=== PATIENT | female | born 2000 | race Caucasian/White ===

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

== ENCOUNTER 2021-01-11 06:54 | Day surgery (SDC) | payer BC ==
[2021-01-09 16:18] VITALS: BMI 16.0
[~2021-01-11 06:54] MED LIST: LACTATED RINGERS 1,000 ML IV SCH
[2021-01-11 07:25] VITALS: TEMP 97
[2021-01-11] MEDS ORDERED: PROPOFOL 10 MG/ML 20 ML VIAL IV ONE (07:45)
[2021-01-11] MEDS ORDERED: LIDOCAINE 1% INJ 10MG/ML (20 ML MDV) ONE (07:45)
--- NOTE | 2021-01-11 08:23 | P.PCN ---
Date of Procedure: 01/11/21 Description of Procedure: Brief history: Patient is a pleasant 20-year-old presents for esophagogastroduodenoscopy and colonoscopy for symptoms of melena, nausea, abdominal pain. Patient has been started on Prilosec daily. Intermittent dark black stools. Frequent episodes of nausea. Procedure performed: Esophagogastroduodenoscopy with biopsy Colonoscopy with biopsy Estimated blood loss: Minimal. Preoperative diagnosis: Melena, nausea, abdominal pain Anest[place]: [facility] [place] Procedure: After informed consent was obtained from the patient was brought into the endoscopy unit and IV sedation was administered by anesthesia under continuous monitoring. Initially upper endoscopy was done. The Olympus GF 190 video endoscope was inserted into the mouth and esophagus intubated without any difficulty and was gradually advanced into the stomach and duodenum and carefully examined. The bulb and second part of the duodenum appeared normal, with biopsies taken to rule out celiac sprue. The scope was then withdrawn into the stomach adequately insufflated with air and upon careful examination the antrum and body, cardia and fundus appeared normal, except for some mild punctate erythema in the antrum and body suggestive of mild gastritis with biopsies taken. The scope was then withdrawn into the esophagus. The GE junction was located at 40 cm to the incisors. It appeared regular with no erythema erosions or ulcerations. Rest of the esophagus appeared normal, with lower esophageal biopsies taken. Patient tolerated the procedure well. At this time the patient continued to remain sedation. Initial digital rectal examination was normal. Olympus CF 190 video colonoscope was then inserted into the rectum and gradually advanced to the cecum without any difficulty. Careful examination was performed as the scope was gradually being withdrawn. The prep was excellent. The cecum, ascending colon, transverse colon, descending colon, sigmoid colon and rectum appeared normal, and normal-appearing terminal ileum with random biopsies taken of the right colon, left colon and terminal ileum. Retroflexion was performed in the rectum and no lesions were noted, low-grade internal hemorrhoids seen. Patient tolerated the procedure well. Impression: 1. Mild gastritis. Biopsies of the duodenum, antrum and body and lower esophagus taken. 2. Normal-appearing colon from rectum to cecum normal-appearing terminal ileum with random biopsies taken of the terminal ileum, right and left colon. Recommendations: Findings of this examination were discussed with the patient as well as the patient's mother. Okay to resume diet. Okay to resume medications. Continue trial of Prilosec. Follow-up in the GI clinic in 1 week for further recommendations and results of biopsies.
[2021-01-11 08:25] VITALS: RESP 16
[2021-01-11 09:02] VITALS: BP 98/62; PULSE 50
== END 2021-01-11 09:13 | disposition home or self-care (01) ==
LOC: ORWHC2ENDO 06:54
PROVIDERS: ATTEND Internal Medicine
DX: K92.1 Melena (principal); K29.50 Unspecified chronic gastritis without bleeding; K21.00 Gastro-esophageal reflux disease with esophagitis, without bleeding; F41.9 Anxiety disorder, unspecified; F31.9 Bipolar disorder, unspecified
CPT/HCPCS: 81025; 88305; 45380; 43239; J2001; J2704

== ENCOUNTER → 2021-05-28 | Outpatient (CLI) | payer BC ==
[2021-05-28 14:24] LABS: Basophils # (A) 0.02 X 10*3/uL (0.00-0.10); Basophils % (A) 0.4 %; Eosinophils % (A) 1.9 %; HCT 42.4 % (37.2-46.3); HGB 13.9 g/dL (12.0-15.0); Lymphocytes # (A) 2.13 X 10*3/uL (0.90-5.00); MCH 30.9 pg (27.0-32.0); MCHC 32.8 g/dL (32.0-37.0); MCV 94.2 fL (80.0-97.0); Mean Platelet Volume 9.5 fL (9.5-12.2); Monocytes % (A) 9.6 %; Neutrophils # (A) 2.45 X 10*3/uL (1.80-7.70); Neutrophils % (A) 47.1 %; Platelet Count 228 X 10*3/uL (140-440); RDW 12.1 % (11.5-14.5)
[2021-05-28 15:14] LABS: ALT 8 U/L (8-44); AST 14 U/L (13-35); Albumin 4.5 g/dL (3.8-4.9); Albumin/Globulin Ratio 2.35 (1.60-3.17); Alkaline Phosphatase 59 U/L (41-126); Bilirubin, Conjugated <0.20 mg/dL (0.20-0.40); Globulin 1.9 g/dL (1.6-3.3); Total Protein 6.4 g/dL (6.2-8.2)
[2021-05-28 23:00] LABS: Carbamazepine (Tegretol) 6.7 ug/mL (4.0-12.0)
== END | disposition home or self-care (01) ==
LOC: LABWHC1 09:41
DX: Z79.899 Other long term (current) drug therapy (principal)
CPT/HCPCS: 36415; 80076; 80156; 84443; 85025

== ENCOUNTER → 2021-07-16 | Outpatient (CLI) | payer BC ==
[2021-07-16 19:36] LABS: Estradiol 57.1 pg/mL
[2021-07-16 19:43] LABS: ALT 6 U/L (8-44); AST 15 U/L (13-35); African American GFR (CKD) 146.1 (60.0-200.0); Albumin 4.8 g/dL (3.8-4.9); Albumin/Globulin Ratio 2.24 (1.60-3.17); Alkaline Phosphatase 66 U/L (41-126); BUN/Creat Ratio 20.35 Ratio (12.00-20.00); Blood Urea Nitrogen 14.1 mg/dL (9.0-27.0); Calcium 9.4 mg/dL (8.7-10.3); Carbon Dioxide 23.3 mmol/L (20.0-27.5); Chloride 106 mmol/L (96-109); Chol/HDL Ratio 2.81 Ratio; Globulin 2.2 g/dL (1.6-3.3); Glucose 83 mg/dL (70-110); LDL Cholesterol,Calculated 84.6 mg/dL (0.0-131.0); Potassium 4.2 mmol/L (3.5-5.5); Sodium 141 mmol/L (135-145); VLDL Calculation 12.58 mg/dL (5.00-40.00)
[2021-07-16 20:06] LABS: Basophils # (A) 0.02 X 10*3/uL (0.00-0.10); Basophils % (A) 0.5 %; Eosinophils # (A) 0.06 X 10*3/uL (0.04-0.35); Eosinophils % (A) 1.5 %; HCT 39.6 % (37.2-46.3); HGB 13.5 g/dL (12.0-15.0); Lymphocytes % (A) 35.2 %; MCH 31.7 pg (27.0-32.0); MCHC 34.1 g/dL (32.0-37.0); Mean Platelet Volume 9.5 fL (9.5-12.2); Monocytes # (A) 0.28 X 10*3/uL (0.20-1.00); Neutrophils # (A) 2.22 X 10*3/uL (1.80-7.70); Neutrophils % (A) 55.8 %; Platelet Count 184 X 10*3/uL (140-440); RBC 4.26 X 10*6/uL (4.10-5.20); WBC 3.98 X 10*3/uL (4.50-10.00)
[2021-07-16 20:10] LABS: C Reactive Protein <0.30 mg/dL (0.00-0.80); Carbamazepine (Tegretol) <2.0 ug/mL (4.0-12.0); Thyroid Peroxidase Antibodies <9.0 U/mL (0.0-33.0)
== END | disposition home or self-care (01) ==
LOC: LABWHC1 13:23
PROVIDERS: ATTEND Obstetrics & Gynecology
DX: I73.00 Raynaud's syndrome without gangrene (principal); E34.50 Androgen insensitivity syndrome, unspecified; R53.83 Other fatigue; R41.3 Other amnesia; Z51.81 Encounter for therapeutic drug level monitoring
CPT/HCPCS: 36415; 80053; 80061; 80156; 82306; 82525; 82607; 82670; 82746; 83036; 83735; 84402; 84403; 84439; 84443; 84481; 84482; 84630; 85025; 86038; 86140; 86376; 86800

== ENCOUNTER 2022-01-02 16:32 | Emergency (ER) | payer BC ==
[2022-01-02 16:52] VITALS: BP 113/72; PULSE 76; RESP 16; TEMP 98.1
--- NOTE | 2022-01-02 17:20 | ED ---
General Adult HPI - General Chief complaint: Psychiatric Symptoms Stated complaint: Mental Health Time Seen by Provider: 01/02/22 16:53 Source: patient Mode of arrival: ambulatory Limitations: no limitations - History of Present Illness Initial comments: Dictation was produced using [employer] dictation software. please excuse any grammatical, word or spelling errors. Chief Complaint: 21-year-old transgender female presents to the emergency department suicidal ideation. History of Present Illness: Patient 21-year-old transgender female presents to the emergency Department for suicidal ideation suicidal behavior. Patient has strong psychiatric history has been admitted to inpatient psychiatry on normal occasions in the past. Over the last several days she has been feeling more suicidal. She has made when she superficial lacerations and abrasions to her extremities. Patient is here accompanied by mother who is one of our PROJECT ADMINISTRATOR's. Patient has no medical complaints today. The ROS documented in this emergency department record has been reviewed and confirmed by me. Those systems with pertinent positive or negative responses have been documented in the HPI. All other systems are other negative and/or noncontributory. PHYSICAL EXAM: General Impression: Alert and oriented x3, not in acute distress HEENT: Normocephalic atraumatic, extra-ocular movements intact, pupils equal and reactive to light bilaterally, mucous membranes moist. Cardiovascular: Heart regular rate and rhythm Chest: Able to complete full sentences, no retractions, no tachypnea Abdomen: abdomen soft, non-tender, non-distended, no organomegaly Musculoskeletal: Pulses present and equal in all extremities, no peripheral edema Motor: no focal deficits noted Neurological: CN II-XII grossly intact, no focal motor or sensory deficits noted Skin: Multiple superficial abrasions to the anterior thighs bilaterally and anterior abdomen Psych: Normal affect and mood ED course: 21 yo old female presents emergency department for suicidal ideation and suicidal behavior. Her plan is to overdose on medications. Patient is a transgender female. Vital Signs upon arrival are within acceptable limits. Patient is well-appearing at bedside. She denies any medical complaints. Physical examination is benign. Patient medically cleared for EPS evaluation. Patient evaluated by EPS recommended discharge. Patient does have good outpatient follow-up. Patient has good social situation and will make his appointments. Patient and mother are happy with plan. - Related Data Home Medications Medication Instructions Recorded Confirmed Benztropine Mesylate [Cogentin] 0.5 mg PO BID 01/02/22 01/02/22 Cariprazine HCl [Vraylar] 3 mg PO DAILY 01/02/22 01/02/22 Deplin 15mg Caps 15 mg PO DAILY 01/02/22 01/02/22 Desvenlafaxine Succinate [Pristiq 50 mg PO DAILY 01/02/22 01/02/22 ER] Norethindrone Acetate 2.5 mg PO DAILY 01/02/22 01/02/22 [Norethindrone AC (Lupaneta)] Testosterone [Testosterone 1.62% 1 packet TRANSDERM DAILY 01/02/22 01/02/22 (1250 mg)] busPIRone HCl [Buspar] 5 mg PO TID PRN 01/02/22 01/02/22 traZODone HCL [Desyrel] 150 mg PO HS 01/02/22 01/02/22 Allergies Allergy/AdvReac Type Severity Reaction Status Date / Time No Known Allergies Allergy Verified 01/02/22 19:14 Review of Systems ROS Statement: Those systems with pertinent positive or pertinent negative responses have been documented in the HPI. ROS Other: All systems not noted in ROS Statement are negative. Past Medical History Past Medical History: No Reported History Additional Past Medical History / Comment(s): ABD. PAIN, N/V/D. TRANSGENDER- CURRENTLY ON HRT History of Any Multi-Drug Resistant Organisms: None Reported Past Surgical History: No Surgical Hx Reported Past Anesthesia/Blood Transfusion Reactions: No Reported Reaction Past Psychological History: Depression Smoking Status: Current every day smoker, Vaper Past Alcohol Use History: None Reported Past Drug Use History: Marijuana - Past Family History Father Family Medical History: Hyperlipidemia Mother Family Medical History: No Reported History General Exam Limitations: no limitations Course Vital Signs 01/02/22 16:49 Temperature 98.1 F Pulse Rate 76 Respiratory 16 Rate Blood Pressure 113/72 O2 Sat by Pulse 100 Oximetry Medical Decision Making - Lab Data Lab Results 01/02/22 Range/Units 18:06 Urine Opiates Screen Not Detected (NotDetected) Ur Oxycodone Screen Not Detected (NotDetected) Urine Methadone Screen Not Detected (NotDetected) Ur Propoxyphene Screen Not Detected (NotDetected) Ur Barbiturates Screen Not Detected (NotDetected) U Tricyclic Antidepress Not Detected (NotDetected) Ur Phencyclidine Scrn Not Detected (NotDetected) Ur Amphetamines Screen Not Detected (NotDetected) U Methamphetamines Scrn Not Detected (NotDetected) U Benzodiazepines Scrn Not Detected (NotDetected) Urine Cocaine Screen Not Detected (NotDetected) U Marijuana (THC) Screen Detected H (NotDetected) Disposition Clinical Impression: Suicidal ideation Disposition: HOME SELF-CARE Condition: Fair Instructions (If sedation given, give patient instructions): Help Prevent Suicide (ED) Is patient prescribed a controlled substance at d/c from ED?: No Referrals: Fortunato Vogt MD [Primary Care Provider] - 1-2 days Time of Disposition: 22:31
[2022-01-02 18:35] LABS: Amphetamine Screen,Urine Not Detected (NotDetected); Barbiturate Screen,Urine Not Detected (NotDetected); Benzodiazepines Screen,Urine Not Detected (NotDetected); Cocaine Screen,Urine Not Detected (NotDetected); Methadone Screen, Urine Not Detected (NotDetected); Opiate Screen,Urine Not Detected (NotDetected); Oxycodone Screen, Urine Not Detected (NotDetected); Phencyclidine Screen,Urine Not Detected (NotDetected); Tricyclic Antidepressant,Urine Not Detected (NotDetected); Urn Cannabinoid Scrn Detected (NotDetected)
== END 2022-01-02 22:41 | disposition home or self-care (01) ==
LOC: EC 16:32
DX: R45.851 Suicidal ideations (principal); F32.A Depression, unspecified; F17.290 Nicotine dependence, other tobacco product, uncomplicated; F12.90 Cannabis use, unspecified, uncomplicated
CPT/HCPCS: 80306; 82075; 99284

== ENCOUNTER 2022-05-09 15:12 | Emergency (ER) | payer BC ==
[2022-05-09 15:29] VITALS: TEMP 98.6
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
[2022-05-09 16:22] LABS: Basophils % (A) 1 %; Eosinophils % (A) 1 %; HCT 41.7 % (39.0-53.0); HGB 15.6 gm/dL (13.0-17.5); Lymphocytes # (A) 2.6 k/uL (1.0-4.8); Lymphocytes % (A) 46 %; MCH 33.3 pg (25.0-35.0); MCHC 37.4 g/dL (31.0-37.0); MCV 89.2 fL (80.0-100.0); Monocytes # (A) 0.4 k/uL (0-1.0); Monocytes % (A) 7 %; Neutrophils # (A) 2.5 k/uL (1.3-7.7); Neutrophils % (A) 44 %; Platelet Count 242 k/uL (150-450); RBC 4.68 m/uL (4.30-5.90); RDW 12.9 % (11.5-15.5); WBC 5.7 k/uL (4.0-11.0)
[2022-05-09 16:33] LABS: ALT 12 U/L (4-49); AST 21 U/L (17-59); Acetaminophen <10.0 ug/mL; African American GFR (CKD) >90 (>60 ml/min/1.73 sqM); Albumin 5.1 g/dL (3.5-5.0); Alkaline Phosphatase 65 U/L (38-126); Anion Gap 12 mmol/L; Blood Urea Nitrogen 12 mg/dL (9-20); Calcium 9.7 mg/dL (8.4-10.2); Carbon Dioxide 18 mmol/L (22-30); Chloride 109 mmol/L (98-107); Glucose 130 mg/dL (74-99); Non-African American GFR(CKD) >90 (>60 ml/min/1.73 sqM); Potassium 3.8 mmol/L (3.5-5.1); Sodium 139 mmol/L (137-145); Total Protein 7.5 g/dL (6.3-8.2)
[2022-05-09 17:35] LABS: Appearance,Urine Cloudy (Clear); Bacteria,Urine Rare /hpf; Bilirubin,Urine 1+ (Negative); Blood,Urine Negative (Negative); Color,Urine Yellow; Glucose,Urine (UA) Negative (Negative); Ketones,Urine 2+ (Negative); Leukocyte Esterase,Urine Negative (Negative); Mucus,Urine Many /hpf; Nitrite,Urine Negative (Negative); Protein,Urine 1+ (Negative); RBC,Urine 2 /hpf (0-5); Specific Gravity,Urine 1.031 (1.001-1.035); Squamous Epithelial Cell,Urine 6 /hpf (0-4); WBC,Urine 6 /hpf (0-5)
[2022-05-09 17:43] LABS: Amphetamine Screen,Urine Not Detected (NotDetected); Barbiturate Screen,Urine Not Detected (NotDetected); Benzodiazepines Screen,Urine Not Detected (NotDetected); Cocaine Screen,Urine Not Detected (NotDetected); Methadone Screen, Urine Not Detected (NotDetected); Opiate Screen,Urine Not Detected (NotDetected); Oxycodone Screen, Urine Not Detected (NotDetected); Phencyclidine Screen,Urine Not Detected (NotDetected); Tricyclic Antidepressant,Urine Not Detected (NotDetected); Urn Cannabinoid Scrn Detected (NotDetected)
[2022-05-09 21:04] VITALS: RESP 16
[2022-05-10 00:12] VITALS: BP 92/54; PULSE 71
[2022-05-13 14:19] LABS: C. trachomatis,PCR Negative (Neg,Equiv); Chlamydia trachomatis Source Urine; N. gonorrhoeae,PCR Negative (Neg,Equiv); Neisseria Source Urine
[2022-05-13 23:04] LABS: C. pnuemoniae IgM <1:10 titer (<1:10)
== END 2022-05-10 02:06 | disposition home or self-care (01) ==
LOC: EDSEX → EC 15:12
DX: T43.222A Poisoning by selective serotonin reuptake inhibitors, intentional self-harm, initial encounter (principal); R45.851 Suicidal ideations; F43.23 Adjustment disorder with mixed anxiety and depressed mood; F32.A Depression, unspecified; F17.290 Nicotine dependence, other tobacco product, uncomplicated; F12.90 Cannabis use, unspecified, uncomplicated
CPT/HCPCS: 36415; 80053; 80143; 80179; 80306; 81001; 82075; 83735; 85025; 86631; 86632; 87390; 87491; 87591; 93005; 99285

== ENCOUNTER → 2022-06-21 | Outpatient (CLI) | payer BC ==
[2022-06-21 19:15] LABS: HCT 40.8 % (39.6-50.0); HGB 14.1 g/dL (13.0-17.0); MCHC 34.6 g/dL (32.0-37.0); MCV 92.5 fL (80.0-97.0); Mean Platelet Volume 8.8 fL (9.5-12.2); NRBC Per 100 WBC 0 /100 WBCS (0.0-0.0); Platelet Count 178 X 10*3/uL (140-440); RBC 4.41 X 10*6/uL (4.40-5.60); RDW 12.4 % (11.5-14.5); WBC 3.38 X 10*3/uL (4.50-10.00)
[2022-06-21 20:06] LABS: ALT 11 U/L (10-49); AST 17 U/L (14-35); African American GFR (CKD) 156.9 (60.0-200.0); Albumin 4.4 g/dL (3.8-4.9); Albumin/Globulin Ratio 2.13 (1.60-3.17); Alkaline Phosphatase 69 U/L (41-126); BUN/Creat Ratio 13.56 Ratio (12.00-20.00); Blood Urea Nitrogen 9.6 mg/dL (9.0-27.0); Calcium 8.7 mg/dL (8.7-10.3); Carbon Dioxide 23.2 mmol/L (20.0-27.5); Chloride 109 mmol/L (96-109); Estradiol 48.6 pg/mL; Follicle Stimulating Hormone 6.7 mIU/mL; Globulin 2.1 g/dL (1.6-3.3); Glucose 85 mg/dL (70-110); LDL Cholesterol,Calculated 64.1 mg/dL (0.0-131.0); Magnesium 2.1 mg/dL (1.5-2.4); Non-African American GFR(CKD) 135.4 (60.0-200.0); Sodium 142 mmol/L (135-145); Total Protein 6.5 g/dL (6.2-8.2); VLDL Calculation 4.42 mg/dL (5.00-40.00)
[2022-06-25 10:52] LABS: HIV-1 RNA Not detected (Not detected)
[2022-06-29 19:29] LABS: Albumin, LC/MS/MS 4.3 g/dL (3.6-5.1); Testosterone, Free, LC/MS/MS 220.8 pg/mL (46.0-224.0); Testosterone, Total, LC/MS/MS 1060 ng/dL (250-1100); Zinc, RBC 12.34 mg/L (9.0-14.7)
== END | disposition home or self-care (01) ==
LOC: LABWHC1 11:44
PROVIDERS: ATTEND Obstetrics & Gynecology
DX: Z11.3 Encounter for screening for infections with a predominantly sexual mode of transmission (principal); E55.9 Vitamin D deficiency, unspecified; F41.8 Other specified anxiety disorders; E34.50 Androgen insensitivity syndrome, unspecified; D51.9 Vitamin B12 deficiency anemia, unspecified
CPT/HCPCS: 36415; 80053; 80061; 82040; 82306; 82607; 82670; 82746; 83001; 83036; 83735; 84270; 84403; 84439; 84443; 84481; 84630; 85027; 86780; 87340; 87535

== ENCOUNTER → 2024-03-02 | Outpatient (CLI) | payer BC ==
[2024-03-02 15:10] LABS: Basophils # (A) 0.02 X 10*3/uL (0.00-0.10); Basophils % (A) 0.5 %; Eosinophils # (A) 0.06 X 10*3/uL (0.04-0.35); Eosinophils % (A) 1.5 %; HCT 44.4 % (37.2-46.3); HGB 15.2 g/dL (12.0-15.0); Immature Grans, Automated 0 %; Lymphocytes # (A) 2.04 X 10*3/uL (0.90-5.00); Lymphocytes % (A) 49.5 %; MCHC 34.2 g/dL (32.0-37.0); MCV 90.4 FL (80.0-97.0); Mean Platelet Volume 9.4 FL (9.5-12.2); Monocytes # (A) 0.35 X 10*3/uL (0.20-1.00); Monocytes % (A) 8.5 %; NRBC Per 100 WBC 0 X 10*3/uL (0.00-0.01); Neutrophils # (A) 1.65 X 10*3/uL (1.80-7.70); Platelet Count 203 X 10*3/uL (140-440); RBC 4.91 X 10*6/uL (4.10-5.20); WBC 4.12 X 10*3/uL (4.50-10.00)
[2024-03-02 15:58] LABS: ALT 8 U/L (8-44); AST 14 U/L (13-35); Albumin 4.6 g/dL (3.8-4.9); Albumin/Globulin Ratio 2.19 Ratio (1.60-3.17); Alkaline Phosphatase 64 U/L (41-126); BUN/Creat Ratio 13.25 Ratio (12.00-20.00); Blood Urea Nitrogen 10.6 mg/dL (9.0-27.0); Calcium 9.5 mg/dL (8.7-10.3); Carbon Dioxide 23.8 mmol/L (21.6-31.8); Chloride 109 mmol/L (96-109); Globulin 2.1 g/dL (1.6-3.3); Glucose 88 mg/dL (70-110); Potassium 4.7 mmol/L (3.5-5.5); Sodium 142 mmol/L (135-145); T4, Free (Free Thyroxine) 1.33 ng/dL (0.80-1.80); Total Bilirubin 0.3 mg/dL (0.3-1.2); Total Protein 6.7 g/dL (6.2-8.2)
== END | disposition home or self-care (01) ==
LOC: LABWHC1 08:38
PROVIDERS: ATTEND Psychiatry & Neurology Psychiatry
DX: Z00.00 Encounter for general adult medical examination without abnormal findings
CPT/HCPCS: 36415; 80053; 82306; 82607; 82746; 83090; 84439; 84443; 84481; 85025

== ENCOUNTER → 2024-09-27 | Outpatient (CLI) | payer BC ==
[2024-09-27 15:08] LABS: Basophils # (A) 0.02 X 10*3/uL (0.00-0.10); Basophils % (A) 0.5 %; Eosinophils # (A) 0.08 X 10*3/uL (0.04-0.35); HCT 43.5 % (37.2-46.3); HGB 14.9 g/dL (12.0-15.0); Lymphocytes # (A) 1.73 X 10*3/uL (0.90-5.00); Lymphocytes % (A) 42.8 %; MCH 31.2 pg (27.0-32.0); MCHC 34.3 g/dL (32.0-37.0); MCV 91.2 FL (80.0-97.0); Mean Platelet Volume 9.1 FL (9.5-12.2); Monocytes # (A) 0.29 X 10*3/uL (0.20-1.00); Monocytes % (A) 7.2 %; NRBC Per 100 WBC 0 X 10*3/uL (0.00-0.01); Neutrophils # (A) 1.91 X 10*3/uL (1.80-7.70); Neutrophils % (A) 47.3 %; Platelet Count 210 X 10*3/uL (140-440); RBC 4.77 X 10*6/uL (4.10-5.20); RDW 12.2 % (11.5-14.5); WBC 4.04 X 10*3/uL (4.50-10.00)
[2024-09-27 15:29] LABS: Homocysteine <5.00 UMOL/L (4.00-14.00)
[2024-09-27 15:35] LABS: ALT 11 U/L (8-44); AST 17 U/L (13-35); Albumin 4.3 g/dL (3.8-4.9); Albumin/Globulin Ratio 1.87 Ratio (1.60-3.17); Alkaline Phosphatase 55 U/L (41-126); BUN/Creat Ratio 14.71 Ratio (12.00-20.00); Blood Urea Nitrogen 10.3 mg/dL (9.0-27.0); Carbon Dioxide 23.6 mmol/L (21.6-31.8); Chloride 109 mmol/L (96-109); Chol/HDL Ratio 3.63 Ratio; Globulin 2.3 g/dL (1.6-3.3); Glucose 96 mg/dL (70-110); LDL Cholesterol,Calculated 97.5 mg/dL (0.0-131.0); Potassium 4.3 mmol/L (3.5-5.5); Sodium 143 mmol/L (135-145); T4, Free (Free Thyroxine) 1.26 ng/dL (0.80-1.80); Total Bilirubin 0.2 mg/dL (0.3-1.2); Total Protein 6.6 g/dL (6.2-8.2); VLDL Calculation 7.56 mg/dL (5.00-40.00)
[2024-09-27 15:44] LABS: C Reactive Protein <0.30 mg/dL (0.00-0.80)
[2024-09-27 16:14] LABS: Erythrocyte Sedimentation Rate <1 mm/Hr (0-20)
[2024-10-02 13:37] LABS: Zinc, RBC 10.4 mg/L (9.0-14.7)
== END | disposition home or self-care (01) ==
LOC: LABWHC1 08:32
PROVIDERS: ATTEND Psychiatry & Neurology Psychiatry
DX: Z51.81 Encounter for therapeutic drug level monitoring (principal); R53.82 Chronic fatigue, unspecified; K29.70 Gastritis, unspecified, without bleeding
CPT/HCPCS: 36415; 80053; 80061; 82306; 82525; 82607; 82746; 83036; 83090; 83735; 84207; 84425; 84439; 84443; 84481; 84630; 85025; 85652; 86038; 86140

== ENCOUNTER → 2024-09-29 | Outpatient (CLI) | payer BC | END | disposition home or self-care (01) | LOC: LABWHC1 08:22 | PROVIDERS: ATTEND Psychiatry & Neurology Psychiatry | DX: Z51.81 Encounter for therapeutic drug level monitoring (principal); K29.70 Gastritis, unspecified, without bleeding; R53.82 Chronic fatigue, unspecified | CPT/HCPCS: 36415 ==